=== PATIENT | male | born 1950 | race African-American/Black ===

== ENCOUNTER 2017-01-06 17:54 | Emergency (ER) | payer MEDICARE, BC ==
--- NOTE | 2017-01-06 19:00 | ED ---
Recheck HPI - General Chief Complaint: Recheck/Abnormal Lab/Rx Stated Complaint: Peg Tube out Time Seen by Provider: 01/06/17 18:00 Source: EMS, RN notes reviewed, old records reviewed Mode of arrival: EMS Limitations: language barrier, altered mental status, physical limitation - History of Present Illness Initial Comments: Patient is a 66-year-old male presents emergency room for evaluation of PEG tube replacement. Patient was brought here from [facility]. Patient has a PEG tube placed. Apparently while transferring patient the PEG tube was pulled out. Nursing staff at [facility] placed a Emery catheter until a PEG tube could be replaced. Patient is nonverbal. No one is present with patient. Unsure on how long PEG tube has been placed. Patient appears to be in no distress. Patient has hemiplegia and hemiparesis on the right side. - Related Data Home Medications Medication Instructions Recorded Confirmed Acetaminophen Tab [Tylenol] 650 mg PEG/G-TUBE Q4H PRN 04/12/16 01/06/17 Atenolol [Tenormin] 25 mg PEG/G-TUBE QAM 04/12/16 01/06/17 Cholecalciferol [Vitamin D3] 2,000 unit PEG/G-TUBE DAILY 04/12/16 01/06/17 Lisinopril 40 mg PEG/G-TUBE QAM 04/12/16 01/06/17 Clopidogrel [Plavix] 75 mg PEG/G-TUBE HS 07/08/16 01/06/17 Furosemide [Lasix] 40 mg PEG/G-TUBE MOWEFR 07/08/16 01/06/17 Potassium Chloride Oral Liquid 20 meq PEG/G-TUBE MOWEFR 07/08/16 01/06/17 levETIRAcetam [Keppra] 1,000 mg PEG/G-TUBE Q12HR 07/08/16 01/06/17 Acetaminophen [Tylenol] 650 mg PEG/G-TUBE DAILY 01/06/17 01/06/17 Famotidine [Pepcid] 20 mg PEG/G-TUBE BID 01/06/17 01/06/17 Fenofibrate Nanocrystallized 145 mg PEG/G-TUBE DAILY 01/06/17 01/06/17 [Tricor] Glycerin/Propylene Glycol 1 drop BOTH EYES TID 01/06/17 01/06/17 [Artificial Tears Drops] Vits A and D/White Pet/Lanolin [A 1 applic TOPICAL BID PRN 01/06/17 01/06/17 and D Ointment] amLODIPine [Norvasc] 5 mg PEG/G-TUBE DAILY 01/06/17 01/06/17 Previous Rx's Medication Instructions Recorded Ipratropium-Albuterol Nebulize 3 ml INHALATION RT-QID ampul.neb 04/19/16 [Duoneb 0.5 mg-3 mg/3 ml Soln] Allergies Allergy/AdvReac Type Severity Reaction Status Date / Time No Known Allergies Allergy Verified 01/06/17 18:20 Review of Systems ROS Statement: Those systems with pertinent positive or pertinent negative responses have been documented in the HPI. ROS Other: All systems not noted in ROS Statement are negative. Past Medical History Past Medical History: COPD, CVA/TIA, GERD/Reflux, Hyperlipidemia, Hypertension, Liver Disease, Osteoarthritis (OA), Pneumonia, Prostate Disorder, Renal Disease , Syncope Additional Past Medical History / Comment(s): hepatitis c, pvd, Right side Flaccid History of Any Multi-Drug Resistant Organisms: None Reported Past Surgical History: No Surgical Hx Reported Additional Past Surgical History / Comment(s): Patient had EGD and colonoscopy in the past, PEG tube placed 02/2016 when had CVA, liver biopsy Past Anesthesia/Blood Transfusion Reactions: No Reported Reaction Past Psychological History: No Psychological Hx Reported Additional Psychological History / Comment(s): was in [place], had some problems with PTSD, nothing current per family, Patient currently nonverbal Smoking Status: Former smoker Past Alcohol Use History: None Reported, Daily Additional Past Alcohol Use History / Comment(s): nothing current Past Drug Use History: Marijuana Additional Drug Use History / Comment(s): no drugs used currently - Past Family History Mother Family Medical History: Myocardial Infarction ([place]) Additional Family Medical History / Comment(s): mom of a heart attack in 70 's Father Family Medical History: CVA/TIA, Myocardial Infarction ([place]) Additional Family Medical History / Comment(s): father at age 71 of a stroke Brother(s) Family Medical History: CVA/TIA, Liver Disease Sister(s) Family Medical History: Vascular Disorder Daughter(s) Family Medical History: No Reported History Son(s) Additional Family Medical History / Comment(s): Patient has step son and three- step daughters General Exam - General Exam Comments Initial Comments: Laying in exam room, no acute distress. Limitations: language barrier, altered mental status, physical limitation General appearance: alert Head exam: Present: atraumatic, normocephalic, normal inspection Eye exam: Present: normal appearance ENT exam: Present: normal exam Neck exam: Present: normal inspection Respiratory exam: Present: normal lung sounds bilaterally. Absent: respiratory distress Cardiovascular Exam: Present: regular rate, normal rhythm, normal heart sounds GI/Abdominal exam: Present: soft, other (Emery catheter placed in upper epigastric. No bleeding noted. No erythema or swelling noted around the ostomy site.). Absent: distended, tenderness, guarding, rebound, rigid Extremities exam: Present: normal inspection Back exam: Present: normal inspection Neurological exam: Present: alert, altered Psychiatric exam: Present: normal affect, normal mood Skin exam: Present: warm, dry, intact, normal color Course Vital Signs 01/06/17 18:11 Temperature 98.3 F Pulse Rate 56 L Respiratory 20 Rate Blood Pressure 107/61 O2 Sat by Pulse 97 Oximetry Procedures - Feeding Tube Replacement Reason for Replacement: fell out Type of Tube: G-J Tube Use of Tube: feedings only Insertion Site Prior to Procedure: clean Tube Used for Reinsertion: patient's own Indian Tube Size (F): 16 Balloon Size (mls): 20 Verification of Placement: KUB Tube Secured by: tape/dressing Patient Tolerated Procedure: well Medical Decision Making - Medical Decision Making Patient is a 66-year-old male presents emergency room for evaluation of feeding tube replacement. Feeding tube has been replaced. KUB: Appropriately placed percutaneous enterogastric tube with no evidence of contrast extravasation. Case discussed with Dr. Marquez. - Radiology Data Radiology results: report reviewed, image reviewed Disposition Clinical Impression: Encounter for feeding tube placement Disposition: HOME SELF-CARE Condition: Good Instructions: How to Use and Care for Your PEG Tube (ED) Additional Instructions: Please follow up with primary care provider in 1-2 days. If any new symptom arises or symptoms worsen, return to ER as soon as possible. Referrals: Babak Cummings MD [Primary Care Provider] - 1-2 days Time of Disposition: 19:06
--- NOTE | 2017-01-06 19:34 | XR ---
EXAMINATION TYPE: XR KUB portable DATE OF EXAM: 01/06/2017 7:25 PM COMPARISON: 07/10/2016 HISTORY: PEG tube evaluation. TECHNIQUE: Single portable supine image was obtained of the mid abdomen after the administration of 2 5 mL of Omnipaque 350 through the percutaneous enteric gastric tube. FINDINGS: Percutaneous enteric gastric tube overlies the mid central abdomen. After instillation of o ral contrast through the PEG tube there is opacification of bowel, morphologically compatible with a gastric antrum and proximal duodenum. No evidence of contrast extravasation. Nonobstructive bowel gas pattern. IMPRESSION: Appropriately placed percutaneous enterogastric tube with no evidence of contrast extrava sation.
[2017-01-06 19:47] VITALS: BP 150/81; PULSE 55; RESP 18; TEMP 97.7
== END 2017-01-06 19:59 | disposition home or self-care (01) ==
LOC: EC 17:54
DX: Z43.1 Encounter for attention to gastrostomy (principal); I69.351 Hemiplegia and hemiparesis following cerebral infarction affecting right dominant side; I10 Essential (primary) hypertension; K21.9 Gastro-esophageal reflux disease without esophagitis; E78.5 Hyperlipidemia, unspecified; B19.20 Unspecified viral hepatitis C without hepatic coma; I73.9 Peripheral vascular disease, unspecified; Z87.891 Personal history of nicotine dependence; Z79.02 Long term (current) use of antithrombotics/antiplatelets; Z79.899 Other long term (current) drug therapy; Z87.01 Personal history of pneumonia (recurrent)
CPT/HCPCS: 74000; 43760; 99283; Q9967

== ENCOUNTER → 2017-03-27 | Outpatient (CLI) | payer MEDICARE, BC, OTHER ==
--- NOTE | 2017-03-27 12:21 | CT ---
EXAMINATION TYPE: CT brain wo con DATE OF EXAM: 03/27/2017 HISTORY: Symptomatic epilepsy, history of prior significant stroke CT DLP: 1669.30 mGycm. Automated Exposure Control for Dose Reduction was Utilized. TECHNIQUE: CT scan of the head is performed without contrast. COMPARISON: CT brain July 09, 2016. FINDINGS: There is no acute intracranial hemorrhage or midline shift identified. There is diffuse v entricular and sulcal prominence consistent with diffuse age-related cerebral atrophy. There is low- attenuation in the periventricular white matter consistent with chronic small vessel ischemic change. Left-sided Encephalomalacia with ex vacuo dilatation of left ventricular system is redemonstrated. T he globes are intact and the visualized sinuses are clear. IMPRESSION: No acute intracranial hemorrhage or midline shift. There is moderate to severe diffuse age-related cerebral atrophy and chronic small vessel ischemic change with old left-sided infarct all redemonstrated. No significant change from prior study is seen.
== END | disposition home or self-care (01) ==
LOC: RADCTMAIN 11:30
PROVIDERS: ATTEND Psychiatry & Neurology Neurology
DX: G31.1 Senile degeneration of brain, not elsewhere classified (principal); I67.82 Cerebral ischemia
CPT/HCPCS: 70450

== ENCOUNTER 2018-09-19 15:44 | Emergency (ER) | payer MEDICARE, BC, OTHER ==
[2018-09-19] MEDS ORDERED: ACETAMINOPHEN IV (For NPO) 1,000 MG in EMPTY BAG 1 BAG IVPB STA (15:59)
--- NOTE | 2018-09-19 16:18 | ED ---
General Adult HPI <Pedrito Velasco - Last Filed: 09/19/18 19:48> - General Source: RN notes reviewed <Pedrito Siddiqi - Last Filed: 09/19/18 20:42> - General Stated complaint: Altered Mental Status Time Seen by Provider: 09/19/18 15:44 - History of Present Illness Initial comments: This is a 68-year-old male whose daughter brings him into the hospital via EMS. Patient has a past medical history significant for a massive stroke with right -sided facial droop and right-sided paralysis completely according to the daughter. Daughter states the patient no longer speaks no longer eats on his own he has a PEG tube and never moves the right side and only occasionally moves the left side. Daughter states this is been ongoing for many months and is following up with a neurologist. Daughter was at the senior care and took the patient to the neurologist today and she thought that the patient was having hard time breathing and was having a little bit of a cough and then started to drool and she thought maybe the droopiness on the right side of the face might of been a little worse. EMS noted that the patient had 101 fever in route. Patient is unable to give any further history and daughter has no further history at this time. (Pedrito Siddiqi) - Related Data Home Medications Medication Instructions Recorded Confirmed Acetaminophen Tab [Tylenol] 650 mg PEG/G-TUBE Q4H PRN 04/12/16 09/19/18 Cholecalciferol [Vitamin D3] 2,000 unit PEG/G-TUBE DAILY 04/12/16 09/19/18 Lisinopril 40 mg PEG/G-TUBE QAM 04/12/16 09/19/18 Clopidogrel [Plavix] 75 mg PEG/G-TUBE DAILY 07/08/16 09/19/18 Potassium Chloride Oral Liquid 20 meq PEG/G-TUBE MOWEFR 07/08/16 09/19/18 levETIRAcetam [Keppra] 1,000 mg PEG/G-TUBE Q12HR 07/08/16 09/19/18 Acetaminophen [Tylenol] 650 mg PEG/G-TUBE DAILY 01/06/17 09/19/18 Famotidine [Pepcid] 20 mg PEG/G-TUBE BID 01/06/17 09/19/18 Fenofibrate Nanocrystallized 145 mg PEG/G-TUBE DAILY 01/06/17 09/19/18 [Tricor] Glycerin/Propylene Glycol 1 drop BOTH EYES TID 01/06/17 09/19/18 [Artificial Tears Drops] Vits A and D/White Pet/Lanolin [A 1 applic TOPICAL BID PRN 01/06/17 09/19/18 and D Ointment] amLODIPine [Norvasc] 5 mg PEG/G-TUBE DAILY 01/06/17 09/19/18 Ipratropium-Albuterol Nebulize 3 ml INHALATION RT-DAILY PRN 09/19/18 09/19/18 [Duoneb 0.5 mg-3 mg/3 ml Soln] Loratadine [Claritin] 10 mg PEG/G-TUBE DAILY 09/19/18 09/19/18 Magnesium Hydroxide [Milk of 2,400 mg PO Q72H PRN 09/19/18 09/19/18 Magnesia] Menthol [Biofreeze] 1 applic TOPICAL DAILY PRN 09/19/18 09/19/18 Metoprolol Tartrate [Lopressor] 25 mg PEG/G-TUBE BID 09/19/18 09/19/18 lamoTRIgine [LaMICtal] 100 mg PEG/G-TUBE BID 09/19/18 09/19/18 Previous Rx's Medication Instructions Recorded Ipratropium-Albuterol Nebulize 3 ml INHALATION RT-QID ampul.neb 04/19/16 [Duoneb 0.5 mg-3 mg/3 ml Soln] Allergies Allergy/AdvReac Type Severity Reaction Status Date / Time No Known Allergies Allergy Verified 09/19/18 18:08 Review of Systems ROS Other: All systems not noted in ROS Statement are negative. <Pedrito Velasco - Last Filed: 09/19/18 19:48> ROS Other: All systems not noted in ROS Statement are negative. <Pedrito Siddiqi - Last Filed: 09/19/18 20:42> ROS Statement: Those systems with pertinent positive or pertinent negative responses have been documented in the HPI. Past Medical History Past Medical History: COPD, CVA/TIA, GERD/Reflux, Hyperlipidemia, Hypertension, Liver Disease, Osteoarthritis (OA), Pneumonia, Prostate Disorder, Renal Disease , Syncope Additional Past Medical History / Comment(s): hepatitis c, pvd, Right side Flaccid History of Any Multi-Drug Resistant Organisms: None Reported Past Surgical History: No Surgical Hx Reported Additional Past Surgical History / Comment(s): Patient had EGD and colonoscopy in the past, PEG tube placed 02/2016 when had CVA, liver biopsy Past Anesthesia/Blood Transfusion Reactions: No Reported Reaction Past Psychological History: No Psychological Hx Reported Additional Psychological History / Comment(s): was in [place], had some problems with PTSD, nothing current per family, Patient currently nonverbal Smoking Status: Former smoker Past Alcohol Use History: None Reported, Daily Additional Past Alcohol Use History / Comment(s): nothing current Past Drug Use History: Marijuana Additional Drug Use History / Comment(s): no drugs used currently - Past Family History Mother Family Medical History: Myocardial Infarction ([place]) Additional Family Medical History / Comment(s): mom of a heart attack in 70 's Father Family Medical History: CVA/TIA, Myocardial Infarction ([place]) Additional Family Medical History / Comment(s): father at age 71 of a stroke Brother(s) Family Medical History: CVA/TIA, Liver Disease Sister(s) Family Medical History: Vascular Disorder Daughter(s) Family Medical History: No Reported History Son(s) Additional Family Medical History / Comment(s): Patient has step son and three- step daughters <Pedrito Siddiqi - Last Filed: 09/19/18 20:42> General Exam <Pedrito Velasco - Last Filed: 09/19/18 19:48> <Pedrito Siddiqi - Last Filed: 09/19/18 20:42> - General Exam Comments Initial Comments: GENERAL: Patient is awake but completely unresponsive to any kind of verbal stimuli which the daughter states is baseline ENT: Neck is soft and supple. No significant lymphadenopathy is noted. Oropharynx is clear. Moist mucous membranes. EYES: The sclera were anicteric and conjunctiva were pink and moist. PULMONARY: Patient has shallow breath sounds he is not able to follow commands to give a deep breath CARDIOVASCULAR: There is a regular rate and rhythm without any murmurs gallops or rubs. ABDOMEN: Soft and nontender with normal bowel sounds. No palpable organomegaly was noted. There is no palpable pulsatile mass. SKIN: Skin is clear with no lesions or rashes and otherwise unremarkable. NEUROLOGIC: Patient is alert and oriented 0. The vehicle to assess cranial nerves as he doesn't follow any commands however I do not notice any facial droop. Patient has complete paralysis of the right side. I was unable to assess strength of the left side because patient follows no commands. Daughter stated that he normally does not move the left side very often and when he does it's only very little bit. Patient was not drooling while I was in the room. Sensation could not be assessed again because patient did not follow any commands or respond in anyway MUSCULOSKELETAL: Unable to assess LYMPHATICS: No significant lymphadenopathy is noted PSYCHIATRIC: Unable to assess since patient does not respond to any verbal commands or conversation and he is unable to speak (Pedrito Siddiqi) Vital Signs 09/19/18 09/19/18 09/19/18 16:02 17:41 19:13 Temperature 98.8 F Pulse Rate 66 73 Respiratory 26 H 20 24 Rate Blood Pressure 119/59 153/96 O2 Sat by Pulse 98 100 Oximetry 09/19/18 20:11 Temperature Pulse Rate 81 Respiratory 21 Rate Blood Pressure 132/64 O2 Sat by Pulse 97 Oximetry Medical Decision Making - Lab Data Result diagrams: 09/19/18 17:15 09/19/18 17:15 <Pedrito Velasco B - Last Filed: 09/19/18 19:48> - Lab Data Result diagrams: 09/19/18 17:15 09/19/18 20:10 <Pedrito Siddiqi - Last Filed: 09/19/18 20:42> - Medical Decision Making Dr. Velasco will be taking over the care of this patient at 5pm Repeat potassium was done after the patient was determined have a high potassium was slightly hemolyzed 6.1 second time the patient is given 30 g of Kayexalate via the PEG tube and Dr. Cummings was contacted Dr. Cummings states that he can be sent back to the senior care and he will follow-up the potassium in the morning. (Pedrito Siddiqi) - Lab Data Lab Results 09/19/18 09/19/18 09/19/18 Range/Units 17:15 17:15 17:15 WBC 5.4 (3.8-10.6) k/uL RBC 3.17 L (4.30-5.90) m/uL Hgb 11.1 L (13.0-17.5) gm/dL Hct 34.2 L (39.0-53.0) % MCV 108.1 H (80.0-100.0) fL MCH 35.1 H (25.0-35.0) pg MCHC 32.5 (31.0-37.0) g/dL RDW 14.3 (11.5-15.5) % Plt Count 270 (150-450) k/uL Neutrophils % 66 % Lymphocytes % 16 % Monocytes % 10 % Eosinophils % 3 % Basophils % 1 % Neutrophils # 3.6 (1.3-7.7) k/uL Lymphocytes # 0.9 L (1.0-4.8) k/uL Monocytes # 0.5 (0-1.0) k/uL Eosinophils # 0.1 (0-0.7) k/uL Basophils # 0.0 (0-0.2) k/uL Macrocytosis Moderate PT (9.0-12.0) sec INR (<1.2) APTT (22.0-30.0) sec Sodium 135 L (137-145) mmol/L Potassium 6.3 H* (3.5-5.1) mmol/L Chloride 109 H (98-107) mmol/L Carbon Dioxide 24 (22-30) mmol/L Anion Gap 2 mmol/L BUN 64 H (9-20) mg/dL Creatinine 2.28 H (0.66-1.25) mg/dL Est GFR (CKD-EPI)AfAm 33 (>60 ml/min/1.73 sqM) Est GFR (CKD-EPI)NonAf 28 (>60 ml/min/1.73 sqM) Glucose 121 H (74-99) mg/dL Plasma Lactic Acid Regis (0.7-2.0) mmol/L Calcium 8.4 (8.4-10.2) mg/dL Total Bilirubin 1.3 (0.2-1.3) mg/dL AST 164 H (17-59) U/L ALT 63 (21-72) U/L Alkaline Phosphatase 181 H (38-126) U/L Total Creatine Kinase 668 H (55-170) U/L CK-MB (CK-2) 0.6 (0.0-2.4) ng/mL CK-MB (CK-2) Rel Index 0.1 Troponin I <0.012 (0.000-0.034) ng/mL Total Protein 6.4 (6.3-8.2) g/dL Albumin 2.4 L (3.5-5.0) g/dL Urine Color Urine Appearance (Clear) Urine pH (5.0-8.0) Ur Specific [place] (1.001-1.035) Urine Protein (Negative) Urine Glucose (UA) (Negative) Urine Ketones (Negative) Urine Blood (Negative) Urine Nitrite (Negative) Urine Bilirubin (Negative) Urine Urobilinogen (<2.0) mg/dL Ur Leukocyte Esterase (Negative) 09/19/18 09/19/18 09/19/18 Range/Units 17:15 17:15 17:15 WBC (3.8-10.6) k/uL RBC (4.30-5.90) m/uL Hgb (13.0-17.5) gm/dL Hct (39.0-53.0) % MCV (80.0-100.0) fL MCH (25.0-35.0) pg MCHC (31.0-37.0) g/dL RDW (11.5-15.5) % Plt Count (150-450) k/uL Neutrophils % % Lymphocytes % % Monocytes % % Eosinophils % % Basophils % % Neutrophils # (1.3-7.7) k/uL Lymphocytes # (1.0-4.8) k/uL Monocytes # (0-1.0) k/uL Eosinophils # (0-0.7) k/uL Basophils # (0-0.2) k/uL Macrocytosis PT 11.5 (9.0-12.0) sec INR 1.1 (<1.2) APTT 22.8 (22.0-30.0) sec Sodium (137-145) mmol/L Potassium (3.5-5.1) mmol/L Chloride (98-107) mmol/L Carbon Dioxide (22-30) mmol/L Anion Gap mmol/L BUN (9-20) mg/dL Creatinine (0.66-1.25) mg/dL Est GFR (CKD-EPI)AfAm (>60 ml/min/1.73 sqM) Est GFR (CKD-EPI)NonAf (>60 ml/min/1.73 sqM) Glucose (74-99) mg/dL Plasma Lactic Acid Regis 1.5 (0.7-2.0) mmol/L Calcium (8.4-10.2) mg/dL Total Bilirubin (0.2-1.3) mg/dL AST (17-59) U/L ALT (21-72) U/L Alkaline Phosphatase (38-126) U/L Total Creatine Kinase (55-170) U/L CK-MB (CK-2) (0.0-2.4) ng/mL CK-MB (CK-2) Rel Index Troponin I (0.000-0.034) ng/mL Total Protein (6.3-8.2) g/dL Albumin (3.5-5.0) g/dL Urine Color Yellow Urine Appearance Clear (Clear) Urine pH 7.0 (5.0-8.0) Ur Specific [place] 1.013 (1.001-1.035) Urine Protein Negative (Negative) Urine Glucose (UA) Negative (Negative) Urine Ketones Negative (Negative) Urine Blood Negative (Negative) Urine Nitrite Negative (Negative) Urine Bilirubin Negative (Negative) Urine Urobilinogen 4.0 (<2.0) mg/dL Ur Leukocyte Esterase Negative (Negative) 09/19/18 Range/Units 20:10 WBC (3.8-10.6) k/uL RBC (4.30-5.90) m/uL Hgb (13.0-17.5) gm/dL Hct (39.0-53.0) % MCV (80.0-100.0) fL MCH (25.0-35.0) pg MCHC (31.0-37.0) g/dL RDW (11.5-15.5) % Plt Count (150-450) k/uL Neutrophils % % Lymphocytes % % Monocytes % % Eosinophils % % Basophils % % Neutrophils # (1.3-7.7) k/uL Lymphocytes # (1.0-4.8) k/uL Monocytes # (0-1.0) k/uL Eosinophils # (0-0.7) k/uL Basophils # (0-0.2) k/uL Macrocytosis PT (9.0-12.0) sec INR (<1.2) APTT (22.0-30.0) sec Sodium (137-145) mmol/L Potassium 6.1 H* (3.5-5.1) mmol/L Chloride (98-107) mmol/L Carbon Dioxide (22-30) mmol/L Anion Gap mmol/L BUN (9-20) mg/dL Creatinine (0.66-1.25) mg/dL Est GFR (CKD-EPI)AfAm (>60 ml/min/1.73 sqM) Est GFR (CKD-EPI)NonAf (>60 ml/min/1.73 sqM) Glucose (74-99) mg/dL Plasma Lactic Acid Regis (0.7-2.0) mmol/L Calcium (8.4-10.2) mg/dL Total Bilirubin (0.2-1.3) mg/dL AST (17-59) U/L ALT (21-72) U/L Alkaline Phosphatase (38-126) U/L Total Creatine Kinase (55-170) U/L CK-MB (CK-2) (0.0-2.4) ng/mL CK-MB (CK-2) Rel Index Troponin I (0.000-0.034) ng/mL Total Protein (6.3-8.2) g/dL Albumin (3.5-5.0) g/dL Urine Color Urine Appearance (Clear) Urine pH (5.0-8.0) Ur Specific [place] (1.001-1.035) Urine Protein (Negative) Urine Glucose (UA) (Negative) Urine Ketones (Negative) Urine Blood (Negative) Urine Nitrite (Negative) Urine Bilirubin (Negative) Urine Urobilinogen (<2.0) mg/dL Ur Leukocyte Esterase (Negative) Disposition Is patient prescribed a controlled substance at d/c from ED?: No <Pedrito Velasco - Last Filed: 09/19/18 19:48> <Pedrito Siddiqi - Last Filed: 09/19/18 20:42> Clinical Impression: TIA (transient ischemic attack), Hyperkalemia Disposition: HOME SELF-CARE Condition: Good Instructions: Transient Ischemic Attack (ED), Hyperkalemia (ED) Referrals: Babak Cummings MD [Primary Care Provider] - 1-2 days
[2018-09-19] MEDS: SODIUM CHLORIDE 0.9% 500 ML 500 ML IV SCH (17:49)
[2018-09-19 17:56] LABS: Appearance,Urine Clear (Clear); Bilirubin,Urine Negative (Negative); Blood,Urine Negative (Negative); Color,Urine Yellow; Glucose,Urine (UA) Negative (Negative); Ketones,Urine Negative (Negative); Leukocyte Esterase,Urine Negative (Negative); Nitrite,Urine Negative (Negative); Protein,Urine Negative (Negative); Specific Gravity,Urine 1.013 (1.001-1.035)
[2018-09-19 18:02] LABS: INR 1.1 (<1.2); Partial Thromboplastin Time 22.8 sec (22.0-30.0); Prothrombin Time 11.5 sec (9.0-12.0)
[2018-09-19 18:05] LABS: Creatine Kinase 668 U/L (55-170)
[2018-09-19 18:06] LABS: Albumin 2.4 g/dL (3.5-5.0); Basophils % (A) 1 %; Calcium 8.4 mg/dL (8.4-10.2); Eosinophils # (A) 0.1 k/uL (0-0.7); Eosinophils % (A) 3 %; HCT 34.2 % (39.0-53.0); HGB 11.1 gm/dL (13.0-17.5); Lymphocytes # (A) 0.9 k/uL (1.0-4.8); Lymphocytes % (A) 16 %; MCH 35.1 pg (25.0-35.0); MCHC 32.5 g/dL (31.0-37.0); MCV 108.1 fL (80.0-100.0); Macrocytosis Moderate; Mean Platelet Volume 7.4; Monocytes # (A) 0.5 k/uL (0-1.0); Monocytes % (A) 10 %; Neutrophils # (A) 3.6 k/uL (1.3-7.7); Neutrophils % (A) 66 %; Platelet Count 270 k/uL (150-450); RBC 3.17 m/uL (4.30-5.90); RDW 14.3 % (11.5-15.5); Total Bilirubin 1.3 mg/dL (0.2-1.3); Total Protein 6.4 g/dL (6.3-8.2); WBC 5.4 k/uL (3.8-10.6)
[2018-09-19 18:15] LABS: Creatine Kinase MB 0.6 ng/mL (0.0-2.4)
[2018-09-19 18:16] LABS: Potassium 6.3 mmol/L (3.5-5.1)
--- NOTE | 2018-09-19 18:55 | XR ---
EXAMINATION TYPE: XR chest 2V DATE OF EXAM: 09/19/2018 COMPARISON: 04/17/2016 HISTORY: Fever TECHNIQUE: Frontal and lateral views of the chest are obtained. FINDINGS: There is no heart failure nor confluent pneumonic infiltrate. Costophrenic angles are witlon r. There is poor inspiration. There are chest leads. IMPRESSION: Very poor inspiration that is worse than last exam. No heart failure.
[2018-09-19 18:57] LABS: Troponin I <0.012 ng/mL (0.000-0.034)
--- NOTE | 2018-09-19 19:02 | CT ---
EXAMINATION TYPE: CT brain wo con DATE OF EXAM: 09/19/2018 COMPARISON: 03/27/2017 HISTORY: AMS, hx of stroke CT DLP: 1121.4 mGycm Automated exposure control for dose reduction was used. FINDINGS: There is severe diffuse cerebral atrophy. There is patchy hypodensity in the white matter left pariet al lobe and left frontal lobe. There is similar change in the right frontal lobe. There is no mass ef fect nor midline shift. There is no sign of intracranial hemorrhage. The calvarium is intact. IMPRESSION: ADVANCED ATROPHY. CHRONIC SMALL VESSEL ISCHEMIA. NO ACUTE INTRACRANIAL ABNORMALITY. NO CHANGE.
[2018-09-19] MEDS ORDERED: SODIUM POLYSTYRENE SULFONATE 15 GM/60 ML BOTTLE PEG/G-TUBE STA (20:36)
[2018-09-19 21:08] VITALS: BP 140/80; PULSE 74; RESP 20; TEMP 97.8
== END 2018-09-19 22:39 | disposition home or self-care (01) ==
LOC: EC 15:44
DX: G45.9 Transient cerebral ischemic attack, unspecified (principal); E87.5 Hyperkalemia; J44.9 Chronic obstructive pulmonary disease, unspecified; K21.9 Gastro-esophageal reflux disease without esophagitis; E78.5 Hyperlipidemia, unspecified; I10 Essential (primary) hypertension; I73.9 Peripheral vascular disease, unspecified; Z87.891 Personal history of nicotine dependence; Z82.3 Family history of stroke; Z86.73 Personal history of transient ischemic attack (TIA), and cerebral infarction without residual deficits; Z79.02 Long term (current) use of antithrombotics/antiplatelets; Z79.899 Other long term (current) drug therapy; Z53.8 Procedure and treatment not carried out for other reasons
CPT/HCPCS: 99285; 96365; 96361 ×2; 36415; 80053; 82550; 82553; 83605; 84132; 84484; 85025; 85610; 85730; 81003; 87040; 87086; 71046; 70450; J0696